=== PATIENT | male | born 1955 | race Caucasian/White ===

== ENCOUNTER 2016-05-01 11:45 | Emergency (ER) | payer BC ==
--- NOTE | 2016-05-01 13:02 | ERRECORD ---
[facility] EMERGENCY RECORD HPI KNEE (12:07 JPIP) CHIEF COMPLAINT: Patient presents for evaluation of pain, to the right knee, Patient presents for evaluation of Patient awoke at apprxox 2AM with anterior right knee pain. 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 HISTORIAN: History provided by patient. MECHANISM OF INJURY: Unknown mechanism. LOCATION: Symptoms are localized, most severe to the anterior right knee, on the right, Radiation is not present. QUALITY: Pain is dull in nature. SEVERITY: Current severity of pain rated as 6/10. TIME COURSE: Sudden onset of symptoms, Date and time of onset was 0200, There has been no change in the patient's symptoms over time, are constant. ASSOCIATED WITH: Associated with erythema, Associated with warmth. EXACERBATED BY: Patient's condition exacerbated by movement, Patient's condition exacerbated by touch. RELIEVED BY: Patient's condition relieved by nothing. ROS (12:08 JPIP) CONSTITUTIONAL: Historian denies chills, denies fever. EYES: Historian denies eye redness, denies itching. GI: Historian denies nausea, denies vomiting. MUSCULOSKELETAL: Historian denies arthralgias, denies myalgias. SKIN: Historian reports skin lesions. NOTES: All systems reviewed, negative except as described above. PAST MEDICAL HISTORY MEDICAL HISTORY: Notes: PROSTATE,, Flu vaccine up to date, Tetanus not up to date, Pneumococcal vaccine up to date, Past medical history includes gastrointestinal disease, gastroesophageal reflux disease, Past medical history includes history of hypertension, pulmonary disease. asthma. (12:02 ERUI) MALE SURGICAL HISTORY: TENNIS ELBOW SURGERY ELIOT. (12:02 ERUI) PSYCHIATRIC HISTORY: No previous psychiatric history. (12:02 ERUI) SOCIAL HISTORY: Patient drinks socially, Patient denies drug use, Patient has no smoking history. (12:02 ERUI) NOTES: Nursing records reviewed, Medication list reviewed. (12:11 JPIP) KNOWN ALLERGIES No Known Drug Allergies CURRENT MEDICATIONS CeleBREX: CAPSULE : Strength - 200 mg : ORAL &a-1R&a+25V*p+0X*w2599S*c202B*c15G*c2P*p-0X&a-25V&a+1R Name: Anders Lenz : 1955 M60 MedRec: [id number] AcctNum: [id number] Prepared: Loirn May 01, 2016 12:54 by Interface Page 1 of 3 pMD [facility] EMERGENCY RECORD Patient Dose: 1 tab(s) Oral once a day. (11:58 ERUI) atenolol: TABLET : Strength - 25 mg : ORAL Patient Dose: 1 tab(s) Oral once a day. (11:58 ERUI) Advair HFA: HFA AEROSOL WITH ADAPTER (GRAM) : Strength - 115 mcg-21 mcg/actuation : INHALATION Patient Dose: 1 puff(s) Oral As Needed. (11:59 ERUI) VITAL SIGNS VITAL SIGNS: BP: 146/92, Pulse: 76, Resp: 18, Temp: 98.1 (Oral), Pain: 6-7, O2 sat: 96 on Room Air, Time: 05/01/2016 11:50. (11:50 AHOO) BP: 132/92, Pulse: 67, Resp: 18, Pain: 6, O2 sat: 96 on Room Air, Time: 05/01/2016 12:44. (12:44 ERUI) PHYSICAL EXAM (12:09 [facility]) CONSTITUTIONAL: Vital Signs Reviewed, Patient afebrile, Pulse normal, Blood pressure, hypertensive, Respiratory rate normal, Patient appears, in mild pain distress, Patient alert and oriented to person, place and time, Nursing notes reviewed. HEAD: Head exam included findings of head atraumatic, normocephalic. EYES: Eye exam included findings of eyelids normal to inspection, Conjunctiva normal, Sclera normal, no periorbital ecchymosis, no periorbital edema, no periorbital erythema. RESPIRATORY CHEST: Respiratory exam included findings of no respiratory distress. UPPER EXTREMITY: Upper extremity exam included findings of inspection normal, Range of motion normal. LOWER EXTREMITY: Lower extremity exam included findings of inspection abnormal, approx. half dollar sized area of anterior erythema, very TTP and warm to touch. No FB no DC, skin is intact, Knee erythema, right side, anterior, Knee warmth, right side, anterior, Knee tenderness, right side, anterior, approx. half dollar sized area of anterior erythema, very TTP and warm to touch. No FB no DC, skin is intact. NEURO: Josu[place] coma scale 15, Neuro exam findings include patient oriented to person, place and time. SKIN: Skin exam included findings of skin warm, dry, and normal in color, approx. half dollar sized area of anterior erythema, very TTP and warm to touch. No FB no DC, skin is intact. PSYCHIATRIC: Psychiatric exam included findings of patient oriented to person place and time, Normal affect. PROBLEM LIST No recorded problems &a-1R&a+25V*p+0X*b0801R*c202B*c15G*c2P*p-0X&a-25V&a+1R Name: Anders Lenz : 1955 [facility] MedRec: [id number] AcctNum: [id number] Prepared: Lorin May 01, 2016 12:54 by Interface Page 2 of 3 pMD [facility] EMERGENCY RECORD DIAGNOSIS (12:41 JPIP) FINAL: PRIMARY: Cellulitis - RIGHT leg. PRESCRIPTION (12:39 JPIP) cephALEXin: CAPSULE (HARD, SOFT, ETC.) : 500 mg : ORAL : Quantity: 1 Unit: tab(s) Route: ORAL Schedule: 3 times a day (after meals) Dispense: 30 May substitute. Refills: No Refills . NOTES: No refills. Ultram: TABLET : 50 mg : ORAL : Quantity: 1-2 Unit: tab(s) Route: ORAL Schedule: every 8 hours PRN Dispense: 30 May substitute. Refills: No Refills . NOTES: for pain No refills. DISPOSITION PATIENT: Disposition Type: Discharge, Disposition: *Discharge Home, Condition: Good. (12:41 JPIP) Patient left the department. (12:49 ERUI) Kamara: AHOO=LUDIVINA Murphy, June ERUI=JOSE RAUL Sanchez, Kelsie JPIP=DO Martinez Joseph &a-1R&a+25V*p+0X*u0751B*c202B*c15G*c2P*p-0X&a-25V&a+1R Name: Yoanna Kendrickganeshenzo Aguirre : 1955 [facility] MedRec: [id number] AcctNum: [id number] Prepared: Lorin May 01, 2016 12:54 by Interface Page 3 of 3 pMD MTDD
--- NOTE | 2016-05-01 13:05 | PICIS ---
[facility] EMERGENCY RECORD TRIAGE (SatMay 01, 2016 11:52 ERUI) TRIAGE NOTES: C/O OF RIGHT KNEE PAIN, AND HOT TO TOUCH, ONSET AT 2AM. (SatMay 01, 2016 11:52 ERUI) PATIENT: AGE: 60, GENDER: male, : Sun 1955, TIME OF GREET: SatMay 01, 2016 11:46, PREFERRED LANGUAGE: Nigerien, ETHNICITY: Unable to Determine, ECODE BILLING MAP: [facility], SSN: [id number], Zip Code: [address], KG WEIGHT: [phone], PHONE: , , , PERSON ID: [id number], PAYMENT: DRU George, PCP: All BISHOP KRISTI. (SatMay 01, 2016 11:52 ERUI) NAME: LenzAnders (11:57) COMPLAINT: RIGHT KNEE PAIN. (SatMay 01, 2016 11:52 ERUI) ADMISSION: URGENCY: 4 Non Urgent, ADMISSION SOURCE: Home, TRANSPORT: CAR, BED: TRIAGE. (SatMay 01, 2016 11:52 ERUI) SIRS SCORING: Heart Rate 55-109 (0), Temp range 96.8-101.1 (0), respiratory rate 12-24 (0), Mental Status altered: no (0). (12:02 ERUI) TRIAGE SCREENING: Patient denies suicidal ideation, Patient denies presence of domestic violence. (12:02 ERUI) TREATMENTS IN PROGRESS: Treatments given Prehospital: MUSCLE RELAXER AT 4AM. (12:02 ERUI) PROVIDERS: TRIAGE NURSE: Kelsie Sanchez RN. (SatMay 01, 2016 11:52 ERUI) KNOWN ALLERGIES No Known Drug Allergies CURRENT MEDICATIONS CeleBREX: CAPSULE : Strength - 200 mg : ORAL Patient Dose: 1 tab(s) Oral once a day. (11:58 ERUI) atenolol: TABLET : Strength - 25 mg : ORAL Patient Dose: 1 tab(s) Oral once a day. (11:58 ERUI) Advair HFA: HFA AEROSOL WITH ADAPTER (GRAM) : Strength - 115 mcg-21 mcg/actuation : INHALATION Patient Dose: 1 puff(s) Oral As Needed. (11:59 ERUI) VITAL SIGNS VITAL SIGNS: BP: 146/92, Pulse: 76, Resp: 18, Temp: 98.1 (Oral), Pain: 6-7, O2 sat: 96 on Room Air, Time: 05/01/2016 11:50. (11:50 AHOO) BP: 132/92, Pulse: 67, Resp: 18, Pain: 6, O2 sat: 96 on Room Air, Time: 05/01/2016 12:44. (12:44 ERUI) NURSING ASSESSMENT: EXTREMITY LOWER (12:02 ERUI) CONSTITUTIONAL: Patient arrives ambulatory, Gait steady, History obtained from patient, Patient appears comfortable, Patient cooperative, Patient alert, Oriented to person, place and time, Skin &a-1R&a+25V*p+0X*c2484O*c202B*c15G*c2P*p-0X&a-25V&a+1R Name: Anders Lnez Carla : 1955 M60 MedRec: [id number] AcctNum: [id number] Prepared: Lorin May 01, 2016 12:54 by Interface Page 1 of 5 pMD [facility] EMERGENCY RECORD warm, Skin dry, Skin normal in color, Patient complains of RIGHT KNEE PAIN, WARM TO TOUCH. PAIN: aching pain, to the right knee, constant, on a scale 0-10 patient rates pain as 6, Pain exacerbated by nothing, Pain relieved by, pain medications. LEFT LOWER EXTREMITY: Left lower extremity assessment findings include capillary refill less than 2 seconds, Skin color normal, Skin temperature warm, Distal sensation intact, Muscle tone normal, muscle strength 5, dorsalis pedis pulse is +4. RIGHT LOWER EXTREMITY: Right lower extremity assessment findings include capillary refill less than 2 seconds, Skin color normal, Skin temperature warm, Distal sensation intact, Muscle tone normal, muscle strength 5, dorsalis pedis pulse is +4, Inspection findings include redness, to KNEE, Inspection findings include swelling, to KNEE, Notes: WARM TO TOUCH. SAFETY: Side rails up, Cart/Stretcher in lowest position, Call light within reach, Hospital ID band on. NURSING PROCEDURE: DISCHARGE NOTE (12:43 ERUI) DISCHARGE: Patient discharged to home, ambulating without assistance, driving self, unaccompanied, Summary of Care printed/ provided, Patient requested and was provided an electronic copy of Discharge Instructions, Discharge instructions given to patient, Simple or moderate discharge teaching performed, Prescriptions given and instructions on side effects given, Name of prescription(s) given: CEPHALEXIN, ULTRAM, Above person(s) verbalized understanding of discharge instructions and follow-up care. BELONGINGS: Belongings remain with patient, Valuables remain with patient. SAFETY: Side rails up, Cart/Stretcher in lowest position, Call light within reach, Hospital ID band on. NURSING PROCEDURE: NURSE NOTES (12:04 ERUI) NURSES NOTES: Notes: Nora with lab at bedside. ORDER DETAILS Order Name: Uric Acid, Status: Active, Time: 12:00 05/01/2016, User: LUCIE, - Ordered for: DO Martinez Joseph, - Entered by: DO Martinez Joseph - Lorin May 01, 2016 12:00, - Quantity: 1. ED COURSE - MDM EXTREMITY NON-TRAUMATIC CONDITIONS: Extremity injury medical decision making includes presentation findings of, pain, redness, to the right knee, Vital signs unstable, Blood pressure 146/92, elevated within normal range requiring normal &a-1R&a+25V*p+0X*a4207O*c202B*c15G*c2P*p-0X&a-25V&a+1R Name: Anders Lenz : 1955 M60 MedRec: [id number] AcctNum: [id number] Prepared: Lorin May 01, 2016 12:54 by Interface Page 2 of 5 pMD [facility] EMERGENCY RECORD treatment, Exam findings include inspection abnormal, approx. half dollar sized area of anterior erythema, very TTP and warm to touch. No FB no DC, skin is intact. (12:21 JPIP) Lab abnormal, uric acid, 7.5, elevated within patient normal range. (12:40 JPIP) DIAGNOSIS: Differential diagnosis includes arthritis, Differential diagnosis includes cellulitis, as a working diagnosis, Differential diagnosis does not include deep vein thrombosis, Differential diagnosis does not include septic joint, Differential diagnosis includes gout, as a working diagnosis. (12:21 JPIP) RISK: Condition with low morbidity suitable for outpatient treatment. (12:21 JPIP) DISPOSITION: The patient will be discharged, The patient will follow up with primary care physician, Estimated treatment duration greater than 48 hours, Patient has stabilized since arrival to emergency department. (12:21 JPIP) HPI KNEE (12:07 JPIP) CHIEF COMPLAINT: Patient presents for evaluation of pain, to the right knee, Patient presents for evaluation of Patient awoke at apprxox 2AM with anterior right knee pain. 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 HISTORIAN: History provided by patient. MECHANISM OF INJURY: Unknown mechanism. LOCATION: Symptoms are localized, most severe to the anterior right knee, on the right, Radiation is not present. QUALITY: Pain is dull in nature. SEVERITY: Current severity of pain rated as 6/10. TIME COURSE: Sudden onset of symptoms, Date and time of onset was 0200, There has been no change in the patient's symptoms over time, are constant. ASSOCIATED WITH: Associated with erythema, Associated with warmth. EXACERBATED BY: Patient's condition exacerbated by movement, Patient's condition exacerbated by touch. RELIEVED BY: Patient's condition relieved by nothing. ROS (12:08 JPIP) CONSTITUTIONAL: Historian denies chills, denies fever. EYES: Historian denies eye redness, denies itching. GI: Historian denies nausea, denies vomiting. MUSCULOSKELETAL: Historian denies arthralgias, denies myalgias. SKIN: Historian reports skin lesions. NOTES: All systems reviewed, negative except as described above. PAST MEDICAL HISTORY MEDICAL HISTORY: Notes: PROSTATE,, Flu vaccine up to date, Tetanus not up to date, Pneumococcal vaccine up to date, Past medical history includes gastrointestinal &a-1R&a+25V*p+0X*e2514U*c202B*c15G*c2P*p-0X&a-25V&a+1R Name: Anders Lenz : 1955 M60 MedRec: [id number] AcctNum: [id number] Prepared: Lorin May 01, 2016 12:54 by Interface Page 3 of 5 pMD [facility] EMERGENCY RECORD disease, gastroesophageal reflux disease, Past medical history includes history of hypertension, pulmonary disease. asthma. (12:02 ERUI) MALE SURGICAL HISTORY: TENNIS ELBOW SURGERY ELIOT. (12:02 ERUI) PSYCHIATRIC HISTORY: No previous psychiatric history. (12:02 ERUI) SOCIAL HISTORY: Patient drinks socially, Patient denies drug use, Patient has no smoking history. (12:02 ERUI) NOTES: Nursing records reviewed, Medication list reviewed. (12:11 JPIP) PHYSICAL EXAM (12:09 JPIP) CONSTITUTIONAL: Vital Signs Reviewed, Patient afebrile, Pulse normal, Blood pressure, hypertensive, Respiratory rate normal, Patient appears, in mild pain distress, Patient alert and oriented to person, place and time, Nursing notes reviewed. HEAD: Head exam included findings of head atraumatic, normocephalic. EYES: Eye exam included findings of eyelids normal to inspection, Conjunctiva normal, Sclera normal, no periorbital ecchymosis, no periorbital edema, no periorbital erythema. RESPIRATORY CHEST: Respiratory exam included findings of no respiratory distress. UPPER EXTREMITY: Upper extremity exam included findings of inspection normal, Range of motion normal. LOWER EXTREMITY: Lower extremity exam included findings of inspection abnormal, approx. half dollar sized area of anterior erythema, very TTP and warm to touch. No FB no DC, skin is intact, Knee erythema, right side, anterior, Knee warmth, right side, anterior, Knee tenderness, right side, anterior, approx. half dollar sized area of anterior erythema, very TTP and warm to touch. No FB no DC, skin is intact. NEURO: [place] coma scale 15, Neuro exam findings include patient oriented to person, place and time. SKIN: Skin exam included findings of skin warm, dry, and normal in color, approx. half dollar sized area of anterior erythema, very TTP and warm to touch. No FB no DC, skin is intact. PSYCHIATRIC: Psychiatric exam included findings of patient oriented to person place and time, Normal affect. LAB INTERPRETATION (12:38 JPIP) INTERPRETATION: uric acid 7.9. EVENTS TRANSFER: Triage to Emergency Triage. (SatMay 01, 2016 11:52 ERUI) &a-1R&a+25V*p+0X*q7714L*c202B*c15G*c2P*p-0X&a-25V&a+1R Name: Anders Lenz : 1955 M60 MedRec: [id number] AcctNum: [id number] Prepared: SatMay 01, 2016 12:54 by Interface Page 4 of 5 pMD [facility] EMERGENCY RECORD Emergency Triage to Emergency Room -02. (11:52 AHOO) Removed from Emergency Emergency Room -02. (12:49 ERUI) O2SAT INTERPRETATION (12:11 JPIP) O2SAT: Single pulse oximetry, Oxygen saturation 96%, on room air, Oxygen saturation interpretation: Normal, No intervention required. PROBLEM LIST No recorded problems DIAGNOSIS (12:41 JPIP) FINAL: PRIMARY: Cellulitis - RIGHT leg. DISPOSITION PATIENT: Disposition Type: Discharge, Disposition: *Discharge Home, Condition: Good. (12:41 JPIP) Patient left the department. (12:49 ERUI) INSTRUCTION (12:39 JPIP) DISCHARGE: CELLULITIS. FOLLOWUP: All BISHOP KRISTI, [facility] [id number], [phone]. SPECIAL: Finish all your antibiotics Follow up with Primary Care Physician within 72 hours Return to the Emergency Department for increased symptoms problems or concerns Continue on the celebrex. PRESCRIPTION (12:39 JPIP) cephALEXin: CAPSULE (HARD, SOFT, ETC.) : 500 mg : ORAL : Quantity: 1 Unit: tab(s) Route: ORAL Schedule: 3 times a day (after meals) Dispense: 30 May substitute. Refills: No Refills . NOTES: No refills. Ultram: TABLET : 50 mg : ORAL : Quantity: 1-2 Unit: tab(s) Route: ORAL Schedule: every 8 hours PRN Dispense: 30 May substitute. Refills: No Refills . NOTES: for pain No refills. IMAGING (12:48 ERUI) *DISCHARGE INSTRUCTIONS RECEIPT: Image captured from scanner. *SUPPLY CHARGE SHEET: Image captured from scanner. RESULTS (12:35 JPIP) LABORATORY: Uric Acid Collection DT: SatMay 01, 2016 12:09, *Uric Acid 7.9 - H mg/dL, Range (3.5-7.2). Kamara: AHOO=LUDIVINA Murphy, June ERUI=JOSE RAUL Sanchez, Kelsie JPIP=DO Martinez Joseph &a-1R&a+25V*p+0X*s7536U*c202B*c15G*c2P*p-0X&a-25V&a+1R Name: Anders Lenz : 1955 M60 MedRec: [id number] AcctNum: [id number] Prepared: Lorin May 01, 2016 12:54 by Interface Page 5 of 5 pMD MTDD
== END 2016-05-01 12:49 | disposition home or self-care (01) ==
LOC: BURERS 11:45
DX: L03.115 Cellulitis of right lower limb (principal); I10 Essential (primary) hypertension; J45.909 Unspecified asthma, uncomplicated; K21.9 Gastro-esophageal reflux disease without esophagitis; Z79.899 Other long term (current) drug therapy
CPT/HCPCS: 36415; 84550; 99283

== ENCOUNTER 2016-05-02 18:35 | Emergency (ER) | payer BC ==
[2016-05-02] MEDS ORDERED: Pot Chloride/Pot Bicarb/Cit Ac 25 mEq Effervescent Tablet ONE (18:51)
[2016-05-02] MEDS ORDERED: Ketorolac Tromethamine 60 MG/2 ML VIAL ONE (19:14)
[2016-05-02] MEDS ORDERED: Sulfameth/Trimethoprim DS 800-160mg TAB ONE (19:14)
[2016-05-02] MEDS ORDERED: HYDROcodone/Acetaminophen 10/325 mg Tablet ONE (19:14)
--- NOTE | 2016-05-02 20:23 | ERRECORD ---
[facility] EMERGENCY RECORD HPI KNEE (19:14 DHAM) CHIEF COMPLAINT: Patient presents for evaluation of right knee pain, to the right knee. HISTORIAN: History provided by patient, Pt with onset 36 hours ago in the middle of the night with right anterior knee pain. 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 He was seen here 24 hours ago and started on tramadol and Keflex. He has a h/o gout and tells me that it feels similar to his gouty attacks in the past. He takes Celebrex 200mg daily in the morning. He also takes daily Prilosec to protect his stomach. MECHANISM OF INJURY: Unknown mechanism. LOCATION: Symptoms are localized, most severe anteriorally, most severe to the prepatellar bursa, on the right. QUALITY: Pain is dull in nature, described as aching. SEVERITY: Current severity of pain rated as 8/10. TIME COURSE: Sudden onset of symptoms, 45, hours prior to arrival, Symptoms are worsening, more pain and redness over the last 24 hours. ASSOCIATED WITH: No associated alcohol use, No associated ankle pain, No associated coolness to touch, Associated with decreased range of motion, No associated distal injury, No associated distal neuro complaint, Associated with erythema, for 2 days, No associated fever, No associated foot pain, No associated hip pain, No associated inability to ambulate, No associated inability to bear weight, No associated injury, No associated numbness, No associated open wounds, Associated with pain on walking, No associated proximal injury, Associated with swelling, No associated tingling, No associated warmth, No associated weakness distal to injury. EXACERBATED BY: Patient's condition exacerbated by flexion, Patient's condition exacerbated by movement, Patient's condition exacerbated by walking. RELIEVED BY: Patient's condition relieved by nothing. ROS (19:19 DHAM) CONSTITUTIONAL: Historian denies chills, denies fever, denies lethargy. EYES: Historian denies eye pain, denies eye redness, denies eye discharge. ENT: Historian denies rhinorrhea, denies sore throat. CARDIOVASCULAR: Historian denies dyspnea on exertion, denies edema. RESPIRATORY: Historian denies cough, denies shortness of breath, denies sputum. GI: Historian denies abdominal pain, denies nausea, denies vomiting. GENITOURINARY MALE: Historian denies dysuria, denies urinary frequency, denies urinary urgency. MUSCULOSKELETAL: Historian reports arthralgias, denies &a-1R&a+25V*p+0X*[id number]*c202B*c15G*c2P*p-0X&a-25V&a+1R Name: Anders Lenz : 1955 M60 MedRec: [id number] AcctNum: [id number] Prepared: SatMay 03, 2016 01:23 by Interface Page 1 of 4 pMD [facility] EMERGENCY RECORD fall, denies injury, reports joint redness, reports joint stiffness, reports joint swelling, denies myalgias, denies neck pain. SKIN: Historian reports skin changes. HEMO/LYMPHATIC: Historian denies abnormal blood clotting, denies easy bruising. PAST MEDICAL HISTORY MEDICAL HISTORY: Flu vaccine up to date, Tetanus not up to date, Pneumococcal vaccine up to date, Past medical history includes gastrointestinal disease, gastroesophageal reflux disease, Past medical history includes history of hypertension, Past medical history includes pulmonary disease, asthma, BPH Verified 05/02/16. (18:47 LGIB) MALE SURGICAL HISTORY: bilateral elbow Verified 05/02/16. (18:47 LGIB) PSYCHIATRIC HISTORY: No previous psychiatric history. Verified 05/02/16. (18:47 LGIB) SOCIAL HISTORY: Patient drinks socially, Patient denies drug use, Patient has no smoking history. Verified 05/02/16. (18:47 LGIB) NOTES: I have reviewed the nursing documentation regarding PMHX, social hx, family hx, and surgical history as well as vitals and triage notes and agree. (18:53 DHAM) KNOWN ALLERGIES No Known Drug Allergies CURRENT MEDICATIONS (18:46 LGIB) CeleBREX: CAPSULE : Strength - 200 mg : ORAL Patient Dose: 1 tab(s) Oral once a day. atenolol: TABLET : Strength - 25 mg : ORAL Patient Dose: 1 tab(s) Oral once a day. Advair HFA: HFA AEROSOL WITH ADAPTER (GRAM) : Strength - 115 mcg-21 mcg/actuation : INHALATION Patient Dose: 1 puff(s) Oral As Needed. cephALEXin: CAPSULE : Strength - 500 mg : ORAL Patient Dose: 1 tab(s) Oral 3 times a day (after meals). Ultram: TABLET : Strength - 50 mg : ORAL Patient Dose: 1-2 tab(s) Oral every 8 hours PRN.for pain. VITAL SIGNS VITAL SIGNS: BP: 137/81, Pulse: 68, Resp: 18 (Non-Labored), Temp: 98 (Oral), Pain: 8, O2 sat: 95 on Room Air, Time: 05/02/2016 18:49. (18:49 LGIB) &a-1R&a+25V*p+0X*[id number]*c202B*c15G*c2P*p-0X&a-25V&a+1R Name: Anders Lenz : 1955 M60 MedRec: [id number] AcctNum: [id number] Prepared: [facility] May 03, 2016 01:23 by Interface Page 2 of 4 pMD [facility] EMERGENCY RECORD BP: 145/79, Pulse: 69, Resp: 20, Pain: 8, O2 sat: 95 on Room Air, Time: 05/02/2016 19:22. (19:22 MVIL) Pain: 3, Time: 05/02/2016 19:56. (19:56 MVIL) Pain: 3, Time: 05/02/2016 19:56. (19:56 MVIL) PHYSICAL EXAM (19:21 DHAM) CONSTITUTIONAL: Vital Signs Reviewed, Patient afebrile, Pulse normal, Blood pressure normal, Respiratory rate normal, Patient appears non toxic, Patient appears, in mild pain distress, Patient alert and oriented to person, place and time, Nursing notes reviewed. LOWER EXTREMITY: Pt has no hip, ankle or foot pain. His only area of pain is the right knee in the LE. He has a [id number] area of redness warmth and swelling anterior to the right patella. There is no swelling noted in the joint space at all and the joint line and supralateral pouch is not swollen or tender. normal neurovascular exam of the right foot with normal sensation and motor fxn and cap refill noted. The prepatellar bursa is swollen and boggy. The area does not feel indurated at all and is not tensely swollen. NEURO: Josué coma scale 15, Neuro exam findings include patient oriented to person, place and time, Speech normal. SKIN: Skin exam included findings of skin warm, dry, no rash, see LE above. LYMPHATIC: Lymphatic exam normal, Femoral nodes normal, Inguinal nodes normal. RADIOLOGYINTERPRETATION (19:52 DHAM) LOWER EXTREMITIES: Knee films negative, on the right, no fracture, no dislocation, no foreign body, no bony lesion, no degenerative joint disease, no effusion. MEDICATION ADMINISTRATION SUMMARY Drug Name: Bactrim DS, Dose Ordered: 1 tab(s), Route: Oral, Status: Canceled, Time: 19:12 05/02/2016, Drug Name: *Toradol intramuscular, Dose Ordered: 60 mg, Route: Intramuscular, Status: Given, Time: 19:22 05/02/2016, Drug Name: Bactrim DS, Dose Ordered: 2 tab(s), Route: Oral, Status: Given, Time: 19:21 05/02/2016, Drug Name: HYDROcodone-acetaminophen, Dose Ordered: 10/325 tab(s), Route: Oral, Status: Given, Time: 19:20 05/02/2016, *Additional information available in notes, Detailed record available in Medication Service section. DOCTOR NOTES (19:28 DHAM) TEXT: Pt pulled me back and tells me "something kind of funny I noticed the night before this pain started." He was cutting his toenails and when he flexed his right knee to get the foot closer to him, he noticed a markedly increased range of motion in the right knee. He says that he usually can't get his foot anywhere near his &a-1R&a+25V*p+0X*h4422M*c202B*c15G*c2P*p-0X&a-25V&a+1R Name: Anders Lenz : 1955 M60 MedRec: [id number] AcctNum: [id number] Prepared: Hellen May 03, 2016 01:23 by Interface Page 3 of 4 pMD [facility] EMERGENCY RECORD buttock, but that night he was able to pull his foot close up and could look at the bottom of his foot and this was really unusual. Tells me that it didn't hurt at all at the time. This anterior knee pain started several hours later. PROBLEM LIST No recorded problems DIAGNOSIS DIFFERENTIAL: Based on history, exam and ancillary studies if indicated: there is no evidence for fracture, there is no evidence for dislocation, there is no evidence for sprain, there is no evidence for meniscal injury, there is no evidence for ligamentous instability, Impression: bursitis, there is no evidence for joint effusion, there is no evidence for septic joint, Impression: right knee, there is no evidence for DVT, Impression: The inflammation is definitely in the prepatellar bursa. This could be gout though I've not seen it occur in a bursa. This may also be a straight forward traumatic prepatellar bursitis. I am covering with Bactrim in addition to his Keflex as septic bursitis is a possibility as well. He may need an aspiration of the prepatellar bursa to help differentiate these if not improved in the next 24-48 hours. I think that traumatic prepatellar bursitis is at the top of my differential. (19:33 DHAM) FINAL: PRIMARY: PREPATELLAR BURSITIS UNS KNEE. (19:55 DHAM) PRESCRIPTION Indocin oral: CAPSULE : 50 mg : ORAL : Quantity: 1 Unit: cap(s) Route: ORAL Schedule: 3 times a day Dispense: 30 Unit: cap(s) May substitute. Refills: No Refills POTENTIAL CONTRAINDICATED INTERACTION: Toradol intramuscular (ketorolac tromethamine) Override Rationale: Potential interaction discussed with patient/family, will stop celebrex while on this. (19:55 DHAM) NOTES: Please advise pt to stop his Celebrex while using this No refills. (19:55 DHAM) Bactrim DS: TABLET : 800 mg-160 mg : ORAL : Quantity: 1 Unit: tab(s) Route: ORAL Schedule: 2 times a day (before meals) Dispense: 20 Unit: tab(s) May substitute. Refills: No Refills . (19:56 DHAM) NOTES: No refills. (19:56 DHAM) DISPOSITION PATIENT: Disposition Type: Discharge, Disposition: *Discharge Home. (19:55 LATOYA) Patient left the department. (20:07 HOWARD) Kamara: LATOYA=MD Zuly, Jamei LGERIK=JOSE RAUL Blackman, Sofía MVIL=JOSE RAUL Dwyer, Bertha &a-1R&a+25V*p+0X*[id number]*c202B*c15G*c2P*p-0X&a-25V&a+1R Name: Anders Lenz : 1955 M60 MedRec: [id number] AcctNum: [id number] Prepared: Hellen May 03, 2016 01:23 by Interface Page 4 of 4 pMD MTDD
--- NOTE | 2016-05-02 20:30 | PICIS ---
[facility] EMERGENCY RECORD TRIAGE (18:45 LGIB) TRIAGE NOTES: redness, warmth to right knee. seen here 2 days ago. (18:45 LGIB) PATIENT: NAME: Anders Lenz, AGE: 60, GENDER: male, : Sun 1955, TIME OF GREET: SatMay 02, 2016 18:36, PREFERRED LANGUAGE: Luxembourgish, ECODE BILLING MAP: [facility], SSN: [id number], Zip Code: [address], KG WEIGHT: [phone], PHONE: , , , PERSON ID: [id number], PAYMENT: DRU George, PCP: All BISHOP KRISTI. (18:45 LGIB) ETHNICITY: Not or . (18:50) COMPLAINT: right knee pain. (18:45 LGIB) ADMISSION: URGENCY: 3 Urgent, ADMISSION SOURCE: Home, TRANSPORT: CAR, BED: ER -03. (18:45 LGIB) SIRS SCORING: Heart Rate 55-109 (0), Temp range 96.8-101.1 (0), respiratory rate 12-24 (0), Mental Status altered: no (0), Total SIRS Score 0. (18:51 LGIB) PROVIDERS: TRIAGE NURSE: Sofía Blackman RN. (18:45 LGIB) PREVIOUS VISIT ALLERGIES: No Known Drug Allergies. (18:45 LGIB) No Known Drug Allergies. (18:47 LGIB) KNOWN ALLERGIES No Known Drug Allergies CURRENT MEDICATIONS (18:46 LGIB) CeleBREX: CAPSULE : Strength - 200 mg : ORAL Patient Dose: 1 tab(s) Oral once a day. atenolol: TABLET : Strength - 25 mg : ORAL Patient Dose: 1 tab(s) Oral once a day. Advair HFA: HFA AEROSOL WITH ADAPTER (GRAM) : Strength - 115 mcg-21 mcg/actuation : INHALATION Patient Dose: 1 puff(s) Oral As Needed. cephALEXin: CAPSULE : Strength - 500 mg : ORAL Patient Dose: 1 tab(s) Oral 3 times a day (after meals). Ultram: TABLET : Strength - 50 mg : ORAL Patient Dose: 1-2 tab(s) Oral every 8 hours PRN.for pain. VITAL SIGNS VITAL SIGNS: BP: 137/81, Pulse: 68, Resp: 18 (Non-Labored), Temp: 98 (Oral), Pain: 8, O2 sat: 95 on Room Air, Time: 05/02/2016 18:49. (18:49 LGIB) BP: 145/79, Pulse: 69, Resp: 20, Pain: 8, O2 sat: 95 on Room Air, Time: 05/02/2016 19:22. (19:22 MVIL) Pain: 3, Time: 05/02/2016 19:56. (19:56 MVIL) Pain: 3, Time: 05/02/2016 19:56. (19:56 MVIL) &a-1R&a+25V*p+0X*z7386H*c202B*c15G*c2P*p-0X&a-25V&a+1R Name: Anders Lenz : 1955 M60 MedRec: [id number] AcctNum: [id number] Prepared: Hellen May 03, 2016 01:23 by Interface Page 1 of 8 pMD [facility] EMERGENCY RECORD NURSING ASSESSMENT: EXTREMITY LOWER (18:51 LGIB) CONSTITUTIONAL: Complex assessment performed, Patient arrives ambulatory, Gait steady, History obtained from patient, Patient appears comfortable, Patient cooperative, Patient alert, Oriented to person, place and time, Skin warm, Skin dry, Skin normal in color, Mucous membranes pink, Mucous membranes moist, Patient is well-groomed, Patient complains of right knee pain, redness, pain and warmth to right knee. PAIN: aching pain, to the right knee, Onset of pain 04/30/2016, on a scale 0-10 patient rates pain as 8, pain worse on movement. LEFT LOWER EXTREMITY: Left lower extremity assessment findings include capillary refill less than 2 seconds, Skin color normal, Skin temperature warm, Distal sensation intact, Muscle tone normal, dorsalis pedis pulse is +3. RIGHT LOWER EXTREMITY: Right lower extremity assessment findings include capillary refill less than 2 seconds, Skin color normal, Skin temperature warm, Distal sensation intact, Muscle tone normal, dorsalis pedis pulse is +3, Inspection findings include redness, to right knee. SAFETY: Side rails up, Cart/Stretcher in lowest position, Call light within reach, Hospital ID band on. NURSING PROCEDURE: DISCHARGE NOTE (20:04 MVIL) DISCHARGE: Patient discharged to home, ambulating without assistance, family driving, accompanied by //partner, Summary of Care printed/ provided, Patient requested and was provided an electronic copy of Discharge Instructions, Transition record given to patient, Discharge instructions given to patient, Prescriptions given and instructions on side effects given, Name of prescription(s) given: INDOCIN AND BACTRIM, Medication reconciliation form given, Above person(s) verbalized understanding of discharge instructions and follow-up care. BELONGINGS: Belongings and valuables with patient at time of discharge include:. NURSING PROCEDURE: NURSE NOTES (19:25 MVIL) NURSES NOTES: Notes: PATIENT AWAKE AND ALERT. C/O RIGHT KNEE PAIN X 2 DAYS. PAIN LEVEL 8/10 NOW. PATIENT GIVEN NORCO PO, BACTRIM PO, AND TORADOL IM FOR THE PAIN. WILL REASSESS PATIENT WITHIN 30MINS. VSS. WILL CONTINUE TO MONITOR PT VS AND PAIN LEVEL. RECENTLY DIAGNOSED WITH GOUT. NURSING PROCEDURE: TRANSPORT TO TESTS (19:40 MVIL) PATIENT IDENTIFIER: Patient actively involved in identification process, Patient's identity verified by patient stating name, Patient's identity verified by hospital ID bracelet. 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 ORDER DETAILS Order Name: XR Knee Rt 4 View STANDARD, Status: Active, Time: 19:28 05/02/2016, User: LATOYA, - Ordered for: MD Caruso Darren, - Entered by: MD Caruso Darren - [facility] May 02, 2016 19:28, - Quantity: 1. MEDICATION ADMINISTRATION SUMMARY Drug Name: Bactrim DS, Dose Ordered: 1 tab(s), Route: Oral, Status: Canceled, Time: 19:12 05/02/2016, Drug Name: *Toradol intramuscular, Dose Ordered: 60 mg, Route: Intramuscular, Status: Given, Time: 19:22 05/02/2016, Drug Name: Bactrim DS, Dose Ordered: 2 tab(s), Route: Oral, Status: Given, Time: 19:21 05/02/2016, Drug Name: HYDROcodone-acetaminophen, Dose Ordered: 10/325 tab(s), Route: Oral, Status: Given, Time: 19:20 05/02/2016, *Additional information available in notes, Detailed record available in Medication Service section. MEDICATION SERVICE Bactrim DS: Order: Bactrim DS (sulfamethoxazole/trimethoprim) - Dose: 2 tab(s) : Oral Schedule: Now Ordered by: Jamie Caruso MD Entered by: Jamie Caruso MD SatMay 02, 2016 19:13 Documented as given by: Bertha Dwyer RN SatMay 02, 2016 19:21 Patient, Medication, Dose, Route and Time verified prior to administration. Amount given: 2tabs, Correct patient, time, route, dose and medication confirmed prior to administration, Patient advised of actions and side-effects prior to administration, Allergies confirmed and medications reviewed prior to administration, Patient in position of comfort, Side rails up, Cart in lowest position, Family at bedside. HYDROcodone-acetaminophen: Order: HYDROcodone-acetaminophen (hydrocodone bitartrate/acetaminophen) - Dose: 10/325 tab(s) : Oral Schedule: Now Ordered by: Jamie Caruso MD Entered by: Jamie Caruso MD SatMay 02, 2016 19:13 Documented as given by: Bertha Dwyer RN SatMay 02, 2016 19:20 Patient, Medication, Dose, Route and Time verified prior to administration. Amount given: 10mg, Correct patient, time, route, dose and &a-1R&a+25V*p+0X*f3529D*c202B*c15G*c2P*p-0X&a-25V&a+1R Name: Anders Lenz : 1955 M60 MedRec: [id number] AcctNum: [id number] Prepared: [facility] May 03, 2016 01:23 by Interface Page 3 of 8 pMD [facility] EMERGENCY RECORD medication confirmed prior to administration, Patient advised of actions and side-effects prior to administration, Allergies confirmed and medications reviewed prior to administration, Patient in position of comfort, Side rails up, Cart in lowest position, Family at bedside. HYDROcodone-acetaminophen: Response assessment performed, No signs or symptoms of allergic reaction noted, Decreased pain, Pain: 3. (19:56 MVIL) Toradol intramuscular: Order: Toradol intramuscular (ketorolac tromethamine) - Dose: 60 mg : Intramuscular POTENTIAL CONTRAINDICATED INTERACTION: CeleBREX - Potential interaction discussed with patient/family Schedule: Now Notes: one time dose should be fine. last dose was over 12 hours ago. Ordered by: Jamie Caruso MD Entered by: Jamie Caruso MD SatMay 02, 2016 19:12 Documented as given by: Bertha Dwyer RN SatMay 02, 2016 19:22 Patient, Medication, Dose, Route and Time verified prior to administration. IM medication, Amount given: 60mg, Correct patient, time, route, dose and medication confirmed prior to administration, Patient advised of actions and side-effects prior to administration, Allergies confirmed and medications reviewed prior to administration, Patient in position of comfort, Side rails up, Cart in lowest position, Family at bedside. Toradol intramuscular: Response assessment performed, No signs or symptoms of allergic reaction noted, Decreased pain, Pain: 3. (19:56 MVIL) (CANCELED) Bactrim DS: Order: Bactrim DS (sulfamethoxazole/trimethoprim) - Dose: 1 tab(s) : Oral Schedule: Now Ordered by: Jamie Caruso MD Entered by: Jamie Caruso MD SatMay 02, 2016 19:12 Canceled by: Jamie Caruso MD. SatMay 02, 2016 19:12 Cancel reason: Change in medication plan. HPI KNEE (19:14 DHAM) CHIEF COMPLAINT: Patient presents for evaluation of right knee pain, to the right knee. HISTORIAN: History provided by patient, Pt with onset 36 hours ago in the middle of the night with right anterior knee pain. 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 He was seen here 24 hours ago and started on tramadol and Keflex. He has a h/o gout and tells me that it feels similar to his gouty attacks in the past. He takes Celebrex 200mg daily in the morning. He also takes daily Prilosec to protect his stomach. MECHANISM OF INJURY: Unknown mechanism. LOCATION: Symptoms are localized, most severe anteriorally, most severe to the prepatellar &a-1R&a+25V*p+0X*f8186C*c202B*c15G*c2P*p-0X&a-25V&a+1R Name: Anders Lenz : 1955 M60 MedRec: [id number] AcctNum: [id number] Prepared: Hellen May 03, 2016 01:23 by Interface Page 4 of 8 pMD [facility] EMERGENCY RECORD bursa, on the right. QUALITY: Pain is dull in nature, described as aching. SEVERITY: Current severity of pain rated as 8/10. TIME COURSE: Sudden onset of symptoms, 45, hours prior to arrival, Symptoms are worsening, more pain and redness over the last 24 hours. ASSOCIATED WITH: No associated alcohol use, No associated ankle pain, No associated coolness to touch, Associated with decreased range of motion, No associated distal injury, No associated distal neuro complaint, Associated with erythema, for 2 days, No associated fever, No associated foot pain, No associated hip pain, No associated inability to ambulate, No associated inability to bear weight, No associated injury, No associated numbness, No associated open wounds, Associated with pain on walking, No associated proximal injury, Associated with swelling, No associated tingling, No associated warmth, No associated weakness distal to injury. EXACERBATED BY: Patient's condition exacerbated by flexion, Patient's condition exacerbated by movement, Patient's condition exacerbated by walking. RELIEVED BY: Patient's condition relieved by nothing. ROS (19:19 DHAM) CONSTITUTIONAL: Historian denies chills, denies fever, denies lethargy. EYES: Historian denies eye pain, denies eye redness, denies eye discharge. ENT: Historian denies rhinorrhea, denies sore throat. CARDIOVASCULAR: Historian denies dyspnea on exertion, denies edema. RESPIRATORY: Historian denies cough, denies shortness of breath, denies sputum. GI: Historian denies abdominal pain, denies nausea, denies vomiting. GENITOURINARY MALE: Historian denies dysuria, denies urinary frequency, denies urinary urgency. MUSCULOSKELETAL: Historian reports arthralgias, denies fall, denies injury, reports joint redness, reports joint stiffness, reports joint swelling, denies myalgias, denies neck pain. SKIN: Historian reports skin changes. HEMO/LYMPHATIC: Historian denies abnormal blood clotting, denies easy bruising. PAST MEDICAL HISTORY MEDICAL HISTORY: Flu vaccine up to date, Tetanus not up to date, Pneumococcal vaccine up to date, Past medical history includes gastrointestinal disease, gastroesophageal reflux disease, Past medical history includes history of hypertension, Past medical history includes pulmonary disease, asthma, BPH Verified 05/02/16. &a-1R&a+25V*p+0X*e0874I*c202B*c15G*c2P*p-0X&a-25V&a+1R Name: Anders Lenz : 1955 M60 MedRec: [id number] AcctNum: [id number] Prepared: Hellen May 03, 2016 01:23 by Interface Page 5 of 8 D [facility] EMERGENCY RECORD (18:47 LGIB) MALE SURGICAL HISTORY: bilateral elbow Verified 05/02/16. (18:47 LGIB) PSYCHIATRIC HISTORY: No previous psychiatric history. Verified 05/02/16. (18:47 LGIB) SOCIAL HISTORY: Patient drinks socially, Patient denies drug use, Patient has no smoking history. Verified 05/02/16. (18:47 LGIB) NOTES: I have reviewed the nursing documentation regarding PMHX, social hx, family hx, and surgical history as well as vitals and triage notes and agree. (18:53 DHAM) PHYSICAL EXAM (19:21 DHAM) CONSTITUTIONAL: Vital Signs Reviewed, Patient afebrile, Pulse normal, Blood pressure normal, Respiratory rate normal, Patient appears non toxic, Patient appears, in mild pain distress, Patient alert and oriented to person, place and time, Nursing notes reviewed. LOWER EXTREMITY: Pt has no hip, ankle or foot pain. His only area of pain is the right knee in the LE. He has a [id number] area of redness warmth and swelling anterior to the right patella. There is no swelling noted in the joint space at all and the joint line and supralateral pouch is not swollen or tender. normal neurovascular exam of the right foot with normal sensation and motor fxn and cap refill noted. The prepatellar bursa is swollen and boggy. The area does not feel indurated at all and is not tensely swollen. NEURO: [place] coma scale 15, Neuro exam findings include patient oriented to person, place and time, Speech normal. SKIN: Skin exam included findings of skin warm, dry, no rash, see LE above. LYMPHATIC: Lymphatic exam normal, Femoral nodes normal, Inguinal nodes normal. EVENTS TRANSFER: Triage to Emergency Emergency Room -03. (SatMay 02, 2016 18:45 LGIB) Removed from Emergency Emergency Room -03. (20:07 MVIL) RADIOLOGYINTERPRETATION (19:52 DHAM) LOWER EXTREMITIES: Knee films negative, on the right, no fracture, no dislocation, no foreign body, no bony lesion, no degenerative joint disease, no effusion. O2SAT INTERPRETATION (18:53 DHAM) O2SAT: Single pulse oximetry, Oxygen saturation 95%, on room air, Oxygen saturation interpretation: Normal, No intervention required. DOCTOR NOTES (19:28 DHAM) TEXT: Pt pulled me back and tells me "something kind of funny I noticed the night before this pain started." He was cutting &a-1R&a+25V*p+0X*x1575J*c202B*c15G*c2P*p-0X&a-25V&a+1R Name: Anders Lenz : 1955 M60 MedRec: [id number] AcctNum: [id number] Prepared: SatMay 03, 2016 01:23 by Interface Page 6 of 8 pMD [facility] EMERGENCY RECORD his toenails and when he flexed his right knee to get the foot closer to him, he noticed a markedly increased range of motion in the right knee. He says that he usually can't get his foot anywhere near his buttock, but that night he was able to pull his foot close up and could look at the bottom of his foot and this was really unusual. Tells me that it didn't hurt at all at the time. This anterior knee pain started several hours later. PROBLEM LIST No recorded problems DIAGNOSIS DIFFERENTIAL: Based on history, exam and ancillary studies if indicated: there is no evidence for fracture, there is no evidence for dislocation, there is no evidence for sprain, there is no evidence for meniscal injury, there is no evidence for ligamentous instability, Impression: bursitis, there is no evidence for joint effusion, there is no evidence for septic joint, Impression: right knee, there is no evidence for DVT, Impression: The inflammation is definitely in the prepatellar bursa. This could be gout though I've not seen it occur in a bursa. This may also be a straight forward traumatic prepatellar bursitis. I am covering with Bactrim in addition to his Keflex as septic bursitis is a possibility as well. He may need an aspiration of the prepatellar bursa to help differentiate these if not improved in the next 24-48 hours. I think that traumatic prepatellar bursitis is at the top of my differential. (19:33 DHAM) FINAL: PRIMARY: PREPATELLAR BURSITIS UNS KNEE. (19:55 DHAM) DISPOSITION PATIENT: Disposition Type: Discharge, Disposition: *Discharge Home. (19:55 DHAM) Patient left the department. (20:07 MVIL) INSTRUCTION (19:59 DHAM) DISCHARGE: BURSITIS. FOLLOWUP: All BISHOP KRISTI, [facility], [facility], [facility] [id number], [phone]. SPECIAL: Indocin 50mg EVERY 8 HOURS NEEDED FOR PAIN Bactrim DS one twice a day for 10 days Continue your Keflex for now. STOP YOUR CELEBREX WHILE TAKING INDOCIN CONTINUE YOUR PRILOSEC TO PROTECT YOUR STOMACH Ice on 30 min off 30 min. See your pcp to consider referral to ortho for possible aspiration if not better in 24-48 hours. Return for fever, increased pain or any other concerns. PRESCRIPTION &a-1R&a+25V*p+0X*x9959L*c202B*c15G*c2P*p-0X&a-25V&a+1R Name: Anders Lenz : 1955 M60 MedRec: [id number] AcctNum: [id number] Prepared: SatMay 03, 2016 01:23 by Interface Page 7 of 8 pMD [facility] EMERGENCY RECORD Indocin oral: CAPSULE : 50 mg : ORAL : Quantity: 1 Unit: cap(s) Route: ORAL Schedule: 3 times a day Dispense: 30 Unit: cap(s) May substitute. Refills: No Refills POTENTIAL CONTRAINDICATED INTERACTION: Toradol intramuscular (ketorolac tromethamine) Override Rationale: Potential interaction discussed with patient/family, will stop celebrex while on this. (19:55 DHAM) NOTES: Please advise pt to stop his Celebrex while using this No refills. (19:55 DHAM) Bactrim DS: TABLET : 800 mg-160 mg : ORAL : Quantity: 1 Unit: tab(s) Route: ORAL Schedule: 2 times a day (before meals) Dispense: 20 Unit: tab(s) May substitute. Refills: No Refills . (19:56 DHAM) NOTES: No refills. (19:56 DHAM) IMAGING *DISCHARGE INSTRUCTIONS RECEIPT: Image captured from scanner. (20:03 MVIL) Image captured from scanner. (20:04 MVIL) *SUPPLY CHARGE SHEET: Image captured from scanner. (20:04 MVIL) ADMIN (SatMay 03, 2016 01:21 DHAM) DIGITAL SIGNATURE: MD Caruso Darren. Kamara: LATOYA=MD Caruso Darren LGIB=JOSE RAUL Blackman Lauren MVIL=JOSE RAUL Dwyer, Bertha &a-1R&a+25V*p+0X*l9452Q*c202B*c15G*c2P*p-0X&a-25V&a+1R Name: Anders Lenz : 1955 M60 MedRec: [id number] AcctNum: [id number] Prepared: SatMay 03, 2016 01:23 by Interface Page 8 of 8 pMD MTDD
--- NOTE | 2016-05-02 23:08 | RAD ---
RIGHT KNEE FOUR VIEWS: 05/02/16 No fracture, dislocation, or joint effusion was seen. There seems to be a little bit of soft tissue thickening in the patellar and infrapatellar regions. No joint effusion was appreciated. The joint s pace is normal in width for age and the articular surfaces are smooth. IMPRESSION: Soft tissue swelling anteriorly, but no acute bony findings. POS: HOME
== END 2016-05-02 20:00 | disposition home or self-care (01) ==
LOC: BURERS 18:35
DX: M70.41 Prepatellar bursitis, right knee (principal); K21.9 Gastro-esophageal reflux disease without esophagitis; I10 Essential (primary) hypertension; J45.909 Unspecified asthma, uncomplicated; Z79.899 Other long term (current) drug therapy
CPT/HCPCS: 96372; J1885

== ENCOUNTER 2016-05-07 10:34 | Outpatient (CLI) | payer BC ==
--- NOTE | 2016-05-07 18:18 | RAD ---
LUMBAR SPINE THREE VIEWS: Date: 05-07-16 FINDINGS: No fracture or dislocation was seen. There is some very slight disc space narrowing at L5-S1 which may or may not be significant. An MRI would be needed to be sure. Some small osteophytes are seen at most levels. Remnants of some Schmorl's nodes are seen in many lumbar vertebrae. The SI joints appear normal and symmetrical. IMPRESSION: Mild disc space narrowing at L5-S1. POS: HOME
== END 2016-05-07 10:35 | disposition home or self-care (01) ==
LOC: BURRAD 10:34
PROVIDERS: ATTEND Family Medicine
DX: M54.40 Lumbago with sciatica, unspecified side (principal)
CPT/HCPCS: 72100

== ENCOUNTER 2016-12-20 09:14 | Outpatient (CLI) | payer BC ==
[2016-12-20 16:52] LABS: #Basophils 0.2 thou/uL (0.0-0.2); #Eosinphils 0.6 thou/uL (0.0-0.7); #Lymphocytes 1.9 thou/uL (1.20-3.40); #Monocytes 0.7 thou/uL (0.11-0.59); #Neutrophils 2.5 thou/uL (1.40-6.50); %Basophils 2.6 % (0.0-1.0); %Eosinophils 10.4 % (0.0-10.0); %Monocytes 12.7 % (0.0-10.0); %Neutrophils 42.4 % (42.0-75.0); Hemoglobin 16.5 g/dL (14.0-18.0); MDiff Complete? YES; Macrocytosis SLIGHT = 6-15 cells (100X) (0-5/hpf); Mean Corpuscular HGB CONC 34.6 g/dL (32.0-36.0); Mean Corpuscular Hemoglobin 34.1 pg (27.0-31.0); Mean Corpuscular Volume 98.5 fl (80.0-94.0); Mean Platelet Volume 8.5 fL (7.4-10.4); Platelet Count 169 thou/uL (130-400); RBC Distribution Width 12.4 % (11.5-14.5); Red Blood Cell (RBC) Count 4.83 mill/uL (4.70-6.10); White Blood Cell (WBC) Count 5.8 thou/uL (4.8-10.8)
[2016-12-20 16:57] LABS: PSA-Asymptomatic (SCREENING) 2.65 ng/mL (0-4.0); Thyroid Stimulating Hormone 1.7328 uIU/mL (0.35-4.94)
[2016-12-20 16:58] LABS: ALT (SGPT) 22 U/L (8-55); AST (SGOT) 26 U/L (5-34); Albumin 4.1 g/dL (3.4-4.8); Alkaline Phosphatase 81 U/L (40-150); Anion Gap 14 mmol/L (10-20); Bilirubin, Total 0.4 mg/dL (0.2-1.2); Calc. Creatinine Clearance 0 mL/min (70-130); Calcium 8.9 mg/dL (7.8-10.44); Carbon Dioxide 23 mmol/L (23-31); Cardiac Risk 6.6 (Less than 4.5); Chloride 106 mmol/L (98-107); Cholesterol 191 mg/dl (< 200 Desired); Estimated GFR-MDRD Greater than 90; Globulin 3.1 g/dL (2.4-3.5); Glucose 101 mg/dL (80-115); HDL Cholesterol 29 mg/dL (>60 Neg Risk); Potassium 4.6 mmol/L (3.5-5.1); Protein, Total 7.2 g/dL (5.8-8.1); Sodium 138 mmol/L (136-145); Triglycerides 634 mg/dL (Less than 150)
[2016-12-20 17:46] LABS: BUN (Urea Nitrogen) 15 mg/dL (8.4-25.7)
== END 2016-12-20 09:15 | disposition home or self-care (01) ==
LOC: LABLEX 09:14
PROVIDERS: ATTEND Nurse Practitioner
DX: Z12.5 Encounter for screening for malignant neoplasm of prostate (principal); E78.1 Pure hyperglyceridemia; E78.5 Hyperlipidemia, unspecified; I10 Essential (primary) hypertension
CPT/HCPCS: 80053; 80061; 84443; 85025; G0103

== ENCOUNTER 2019-01-08 10:25 | Outpatient (CLI) | payer MEDICARE ==
--- NOTE | 2019-01-13 09:24 | RAD ---
CHEST 01/08/19 PA and lateral views are provided and compared with the 10/08/08 study. The heart is normal in size an d the lungs are clear. No acute infiltrate or effusion was seen. The mediastinum appears normal. The trachea is midline. IMPRESSION: No acute findings. POS: HOME
== END 2019-01-08 10:26 | disposition home or self-care (01) ==
LOC: BURRAD 10:25
PROVIDERS: ATTEND Nurse Practitioner
DX: J45.21 Mild intermittent asthma with (acute) exacerbation (principal)
CPT/HCPCS: 71046

== ENCOUNTER 2019-04-12 12:05 | Emergency (ER) | payer MEDICARE | END 2019-04-12 12:38 | disposition home or self-care (01) | LOC: BURERS 12:05 | DX: H73.011 Bullous myringitis, right ear (principal); K21.9 Gastro-esophageal reflux disease without esophagitis; I10 Essential (primary) hypertension; N40.0 Benign prostatic hyperplasia without lower urinary tract symptoms; J45.909 Unspecified asthma, uncomplicated; Z79.899 Other long term (current) drug therapy; Z79.51 Long term (current) use of inhaled steroids | CPT/HCPCS: 99282 ==

== ENCOUNTER 2019-04-18 02:21 | Emergency (ER) | payer MEDICARE ==
[2019-04-18] MEDS ORDERED: diphenhydrAMINE 50 MG/ML VIAL ONE (02:40)
[2019-04-18] MEDS ORDERED: Metoclopramide HCl 10 MG/2 ML VIAL ONE (02:40)
[2019-04-18] MEDS ORDERED: Ketorolac Tromethamine 30 MG/ML VIAL ONE (02:40)
[2019-04-18 03:00] LABS: Prothrombin Time 13.6 SEC (12.0-14.7)
[2019-04-18 03:06] LABS: #Basophils 0.1 thou/uL (0.0-0.2); #Eosinphils 0.3 thou/uL (0.0-0.7); #Lymphocytes 1.2 thou/uL (1.20-3.40); #Monocytes 0.7 thou/uL (0.11-0.59); #Neutrophils 5.4 thou/uL (1.40-6.50); %Basophils 0.7 % (0.0-1.0); %Eosinophils 4.4 % (0.0-10.0); %Lymphocytes 16.1 % (21.0-51.0); %Monocytes 8.7 % (0.0-10.0); %Neutrophils 70.1 % (42.0-75.0); Hemoglobin 13.8 g/dL (14.0-18.0); Mean Corpuscular HGB CONC 32.2 g/dL (32.0-36.0); Mean Corpuscular Hemoglobin 31.6 pg (27.0-31.0); Mean Corpuscular Volume 98.1 fL (78.0-98.0); Mean Platelet Volume 8.1 fL (7.4-10.4); Platelet Count 186 thou/uL (130-400); Red Blood Cell (RBC) Count 4.36 mill/uL (4.70-6.10); White Blood Cell (WBC) Count 7.7 thou/uL (4.8-10.8)
[2019-04-18 03:11] LABS: ALT (SGPT) 26 U/L (8-55); AST (SGOT) 24 U/L (5-34); Albumin 3.8 g/dL (3.4-4.8); Alkaline Phosphatase 87 U/L (40-110); Anion Gap 13 mmol/L (10-20); BUN (Urea Nitrogen) 15 mg/dL (8.4-25.7); Bilirubin, Total 0.3 mg/dL (0.2-1.2); Calc. Creatinine Clearance 0 mL/min (70-130); Calcium 9.1 mg/dL (7.8-10.44); Carbon Dioxide 25 mmol/L (23-31); Chloride 103 mmol/L (98-107); Estimated GFR-MDRD 82; Globulin 2.9 g/dL (2.4-3.5); Glucose 102 mg/dL (80-115); Protein, Total 6.7 g/dL (5.8-8.1); Sodium 137 mmol/L (136-145)
--- NOTE | 2019-04-18 09:23 | CT ---
PRELIMINARY REPORT/[facility]/AFTER HOURS PROCEDURE CT HEAD WITHOUT INTRAVENOUS CONTRAST: CLINICAL HISTORY: Headaches; mainly to the right temporal. TECHNIQUE: Axial computed tomography images of the head/brain without intravenous contrast. COMPARISON: None provided. FINDINGS: BRAIN: No acute intraparenchymal hemorrhage. No mass lesion. No CT evidence for acute territorial inf arct. No midline shift or extra-axial collection. Scattered periventricular and subcortical white matter hypodensities most commonly associated with sm all vessel ischemic changes. Vascular calcification of the intracranial carotid and vertebral arteri es. VENTRICLES: No hydrocephalus. Mild global cerebral atrophy, appropriate for age. Asymmetric narrowi ng within the posterior horn of the right lateral ventricle without evidence of mass. ORBITS: The orbits are unremarkable. SINUSES AND MASTOIDS: Mild mucosal thickening within the ethmoid sinuses. The mastoid air cells are c lear. SOFT TISSUES: No significant facial or scalp soft tissue swelling evident. No radiopaque foreign body is seen. BONES: No acute skull fracture. IMPRESSION: 1. No acute intracranial abnormality. 2. Sequelae of mild chronic small vessel ischemic changes and age-related cerebral atrophy. ELECTRONICALLY SIGNED BY: Dakotah Matute M.D. Apr 18, 2019 3:08:44 AM [employer] ARTIST This report is intended for review by the ordering physician only, in accordance of law. If you recei ve this report in error, please call [facility] at [phone]. FINAL REPORT CT BRAIN WITHOUT CONTRAST: 04/18/2019 FINDINGS: A noncontrast CT shows normal sized ventricles for age and atrophy. No intracranial bleeding or extra axial hematoma is seen. There is no sign of mass, edema or stroke. Some mild age-related ischemic cortez nges are suggested. The skull appears intact. There are minimal amounts of mucosal thickening in some of the ethmoid air cells and perhaps the left maxillary sinus. The findings are not impressive. The mastoid air cells ar e clear. IMPRESSION: Mild chronic changes but no acute findings to explain the patient's headaches. REPORT IN AGREEMENT WITH PRELIMINARY READING BY [facility]. CODE QA. POS: HOME
== END 2019-04-18 03:10 | disposition home or self-care (01) ==
LOC: BURERS 02:21
DX: G43.909 Migraine, unspecified, not intractable, without status migrainosus (principal); K21.9 Gastro-esophageal reflux disease without esophagitis; I10 Essential (primary) hypertension; J45.909 Unspecified asthma, uncomplicated; N40.0 Benign prostatic hyperplasia without lower urinary tract symptoms
CPT/HCPCS: 70450; 80053; 85025; 85610; 96374; 96375; J1200; J1885; J2765

== ENCOUNTER 2019-04-26 10:41 | Emergency (ER) | payer MEDICARE ==
[2019-04-26 11:45] LABS: #Basophils 0.1 thou/uL (0.0-0.2); #Eosinphils 0.4 thou/uL (0.0-0.7); #Monocytes 0.5 thou/uL (0.11-0.59); #Neutrophils 4.3 thou/uL (1.40-6.50); %Basophils 1.1 % (0.0-1.0); %Eosinophils 5.7 % (0.0-10.0); %Lymphocytes 16.3 % (21.0-51.0); %Monocytes 7.4 % (0.0-10.0); %Neutrophils 69.6 % (42.0-75.0); Hemoglobin 14.6 g/dL (14.0-18.0); Mean Corpuscular HGB CONC 32.4 g/dL (32.0-36.0); Mean Corpuscular Hemoglobin 32.2 pg (27.0-31.0); Mean Corpuscular Volume 99.3 fL (78.0-98.0); Mean Platelet Volume 7.6 fL (7.4-10.4); Platelet Count 254 thou/uL (130-400); RBC Distribution Width 11.9 % (11.5-14.5); Red Blood Cell (RBC) Count 4.52 mill/uL (4.70-6.10); White Blood Cell (WBC) Count 6.2 thou/uL (4.8-10.8)
[2019-04-26] MEDS ORDERED: Ketorolac Tromethamine 30 MG/ML VIAL ONE (11:50)
[2019-04-26] MEDS ORDERED: diphenhydrAMINE 50 MG/ML VIAL ONE (11:50)
[2019-04-26] MEDS ORDERED: Metoclopramide HCl 10 MG/2 ML VIAL ONE (11:50)
[2019-04-26 11:57] LABS: ALT (SGPT) 16 U/L (8-55); AST (SGOT) 18 U/L (5-34); Alkaline Phosphatase 93 U/L (40-110); Anion Gap 15 mmol/L (10-20); BUN (Urea Nitrogen) 14 mg/dL (8.4-25.7); Bilirubin, Total 0.4 mg/dL (0.2-1.2); Calc. Creatinine Clearance 0 mL/min (70-130); Calcium 9.3 mg/dL (7.8-10.44); Carbon Dioxide 28 mmol/L (23-31); Chloride 103 mmol/L (98-107); Estimated GFR-MDRD 75; Globulin 3.2 g/dL (2.4-3.5); Glucose 105 mg/dL (80-115); Potassium 4.6 mmol/L (3.5-5.1); Protein, Total 7.2 g/dL (5.8-8.1); Sodium 141 mmol/L (136-145)
== END 2019-04-26 12:33 | disposition home or self-care (01) ==
LOC: BURERS 10:41
DX: R51 Headache (principal); K21.9 Gastro-esophageal reflux disease without esophagitis; J45.909 Unspecified asthma, uncomplicated; N40.0 Benign prostatic hyperplasia without lower urinary tract symptoms; I10 Essential (primary) hypertension; Z79.899 Other long term (current) drug therapy
CPT/HCPCS: 80053; 85025; 96374; 96375; J1200; J1885; J2765

== ENCOUNTER 2019-07-02 01:18 | Emergency (ER) | payer MEDICARE ==
[2019-07-02] MEDS ORDERED: Metoclopramide HCl 10 MG/2 ML VIAL ONE (02:15)
[2019-07-02] MEDS ORDERED: diphenhydrAMINE 50 MG/ML VIAL ONE (02:15)
== END 2019-07-02 02:10 | disposition home or self-care (01) ==
LOC: BURERS 01:18
DX: R51 Headache (principal); K21.9 Gastro-esophageal reflux disease without esophagitis; I10 Essential (primary) hypertension; J45.909 Unspecified asthma, uncomplicated; Z79.51 Long term (current) use of inhaled steroids; Z79.899 Other long term (current) drug therapy
CPT/HCPCS: 96374; 96375; J1200; J2765

== ENCOUNTER 2019-09-08 14:27 | Outpatient (CLI) | payer MEDICARE ==
[2019-09-08 14:58] LABS: Vancomycin, Trough 17.9 ug/mL
[2019-09-08 15:01] LABS: ALT (SGPT) 25 U/L (8-55); AST (SGOT) 34 U/L (5-34); Albumin 3.8 g/dL (3.4-4.8); Alkaline Phosphatase 73 U/L (40-110); Anion Gap 15 mmol/L (10-20); BUN (Urea Nitrogen) 13 mg/dL (8.4-25.7); Bilirubin, Total 0.3 mg/dL (0.2-1.2); CRP (Inflammatory) Less than 0.50 mg/dL (= or < 0.5); Calc. Creatinine Clearance 0 mL/min (70-130); Carbon Dioxide 28 mmol/L (23-31); Chloride 103 mmol/L (98-107); Estimated GFR-MDRD 84; Globulin 2.7 g/dL (2.4-3.5); Glucose 127 mg/dL (80-115); Potassium 4.8 mmol/L (3.5-5.1); Protein, Total 6.5 g/dL (5.8-8.1); Sodium 141 mmol/L (136-145)
[2019-09-08 15:04] LABS: #Basophils 0.1 thou/uL (0.0-0.2); #Eosinphils 0.4 thou/uL (0.0-0.7); #Monocytes 0.5 thou/uL (0.11-0.59); #Neutrophils 3.3 thou/uL (1.40-6.50); %Basophils 2.3 % (0.0-1.0); %Eosinophils 6.6 % (0.0-10.0); %Lymphocytes 18.3 % (21.0-51.0); %Neutrophils 62.8 % (42.0-75.0); Hemoglobin 11.8 g/dL (14.0-18.0); Hypochromia SLIGHT = 6-15 cells (100X) (0-5/hpf); MDiff Complete? YES; Mean Corpuscular HGB CONC 29.7 g/dL (32.0-36.0); Mean Corpuscular Hemoglobin 28.2 pg (27.0-31.0); Mean Corpuscular Volume 94.9 fL (78.0-98.0); Mean Platelet Volume 7.6 fL (7.4-10.4); Platelet Count 277 thou/uL (130-400); RBC Distribution Width 14.9 % (11.5-14.5); Red Blood Cell (RBC) Count 4.19 mill/uL (4.70-6.10); White Blood Cell (WBC) Count 5.3 thou/uL (4.8-10.8)
== END 2019-09-08 14:28 | disposition home or self-care (01) ==
LOC: BURLAB 14:27
PROVIDERS: ATTEND Internal Medicine Infectious Disease
DX: Z45.010 Encounter for checking and testing of cardiac pacemaker pulse generator [battery] (principal); N18.6 End stage renal disease; Z79.2 Long term (current) use of antibiotics
CPT/HCPCS: 80053; 80202; 85025; 85652; 86140

== ENCOUNTER 2019-09-15 12:10 | Outpatient (CLI) | payer MEDICARE ==
[2019-09-15 12:44] LABS: Vancomycin, Trough 21.7 ug/mL
[2019-09-15 12:57] LABS: #Basophils 0.1 thou/uL (0.0-0.2); #Eosinphils 0.2 thou/uL (0.0-0.7); #Lymphocytes 0.5 thou/uL (1.20-3.40); #Monocytes 0.7 thou/uL (0.11-0.59); #Neutrophils 4.5 thou/uL (1.40-6.50); %Basophils 2.2 % (0.0-1.0); %Eosinophils 3.9 % (0.0-10.0); %Lymphocytes 8.9 % (21.0-51.0); %Monocytes 11.9 % (0.0-10.0); %Neutrophils 73.2 % (42.0-75.0); Hemoglobin 10.8 g/dL (14.0-18.0); Mean Corpuscular HGB CONC 30.1 g/dL (32.0-36.0); Mean Corpuscular Hemoglobin 28.1 pg (27.0-31.0); Mean Corpuscular Volume 93.2 fL (78.0-98.0); Platelet Count 240 thou/uL (130-400); RBC Distribution Width 15.1 % (11.5-14.5); Red Blood Cell (RBC) Count 3.86 mill/uL (4.70-6.10); White Blood Cell (WBC) Count 6.1 thou/uL (4.8-10.8)
[2019-09-15 13:01] LABS: ALT (SGPT) 18 U/L (8-55); AST (SGOT) 26 U/L (5-34); Albumin 3.3 g/dL (3.4-4.8); Alkaline Phosphatase 51 U/L (40-110); Anion Gap 13 mmol/L (10-20); BUN (Urea Nitrogen) 15 mg/dL (8.4-25.7); Bilirubin, Total 0.4 mg/dL (0.2-1.2); CRP (Inflammatory) 3.74 mg/dL (= or < 0.5); Calc. Creatinine Clearance 0 mL/min (70-130); Calcium 8.1 mg/dL (7.8-10.44); Carbon Dioxide 24 mmol/L (23-31); Chloride 107 mmol/L (98-107); Estimated GFR-MDRD Greater than 90; Globulin 2.3 g/dL (2.4-3.5); Glucose 113 mg/dL (80-115); Potassium 4.7 mmol/L (3.5-5.1); Protein, Total 5.6 g/dL (5.8-8.1); Sodium 139 mmol/L (136-145)
== END 2019-09-15 12:11 | disposition home or self-care (01) ==
LOC: BURLAB 12:10
PROVIDERS: ATTEND Internal Medicine Infectious Disease
DX: Z45.1 Encounter for adjustment and management of infusion pump (principal); Z79.2 Long term (current) use of antibiotics
CPT/HCPCS: 80053; 80202; 85025; 86140

== ENCOUNTER 2019-09-22 11:55 | Outpatient (CLI) | payer MEDICARE ==
[2019-09-22 12:22] LABS: Vancomycin, Trough 16.4 ug/mL
== END 2019-09-22 11:56 | disposition home or self-care (01) ==
LOC: BURLAB 11:55
PROVIDERS: ATTEND Internal Medicine Infectious Disease
DX: Z45.1 Encounter for adjustment and management of infusion pump (principal); Z79.2 Long term (current) use of antibiotics
CPT/HCPCS: 80202